=== PATIENT | male | born 1940 | race Caucasian/White ===

== ENCOUNTER 2019-12-25 14:58 | Emergency (ER) | payer MEDICARE ==
--- NOTE | 2019-12-25 15:02 | ERPHSYRPT ---
- History of Present Illness Time Seen by Provider: 12/25/19 15:01 Source: patient Exam Limitations: no limitations Physician History: This is a 79-year-old gentleman who was tripped up walking his dog. He got caught with the dog leash tripped and fell onto his lower back. Most of his pain is on the right side lower back and pelvic brim posteriorly. No other injuries are reported. Timing/Duration: today Method of Injury: fall Quality: stabbing Back Pain Location: lumbar spine, paraspinous muscles (Right paraspinous muscles at the lumbar level) Severity of Pain-Max: moderate Severity of Pain-Current: moderate Associated Symptoms: lower back pain (Right) Previous symptoms: no prior history Allergies/Adverse Reactions: No Known Drug Allergies Allergy (Unverified 06/01/14 18:08) Home Medications: Aspirin [Aspirin EC] 81 mg PO DAILY 06/01/14 [History] Atorvastatin Calcium [Lipitor] 20 mg PO DAILY 06/01/14 [History] Hx Tetanus, Diphtheria Vaccination/Date Given: Yes Hx Influenza Vaccination/Date Given: No Hx Pneumococcal Vaccination/Date Given: No Travel Risk - International Travel Have you traveled outside of the country in past 3 weeks: No Have you or anyone close to you been diagnosed with or: No Do your reside in a community with a known COVID-19 case?: Yes If Yes where:: [facility] - Coronavirus Screening Has patient experienced Coronavirus symptoms: No - Review of Systems Constitutional: No Symptoms Eyes: No Symptoms Ears, Nose, & Throat: No Symptoms Respiratory: No Symptoms Cardiac: No Symptoms Abdominal/Gastrointestinal: No Symptoms Genitourinary Symptoms: No Symptoms Musculoskeletal: Back Pain Skin: No Symptoms Neurological: No Symptoms Psychological: No Symptoms Endocrine: No Symptoms Hematologic/Lymphatic: No Symptoms Immunological/Allergic: No Symptoms All Other Systems: Reviewed and Negative - Past Medical History Pertinent Past Medical History: Yes Neurological History: No Pertinent History ENT History: No Pertinent History Cardiac History: Coronary Artery Disease, High Cholesterol Respiratory History: No Pertinent History Endocrine Medical History: No Pertinent History Musculoskeletal History: No Pertinent History GI Medical History: No Pertinent History History: No Pertinent History Psycho-Social History: No Pertinent History Male Reproductive Disorders: No Pertinent History - Past Surgical History Past Surgical History: Yes Neuro Surgical History: No Pertinent History Cardiac: Cardiac Catheterization, Cardiac Stent Respiratory: No Pertinent History Gastrointestinal: No Pertinent History Genitourinary: No Pertinent History Musculoskeletal: No Pertinent History Male Surgical History: No Pertinent History - Social History Smoking Status: Never smoker Drug Use: none Patient Lives Alone: No - Nursing Vital Signs Nursing Vital Signs: Initial Vital Signs Temperature 97.5 F 12/25/19 15:09 Pulse Rate 62 12/25/19 15:09 Respiratory Rate 20 12/25/19 15:09 Blood Pressure 190/101 12/25/19 15:09 O2 Sat by Pulse Oximetry 97 12/25/19 15:09 Pain Scale Pain Intensity [Right Back] 5 Pain Intensity 5 - Physical Exam General Appearance: mild distress, alert, anxiety Eye Exam: PERRL/EOMI, eyes nml inspection Ears, Nose, Throat Exam: normal ENT inspection, moist mucous membranes Neck Exam: normal inspection, non-tender, supple, full range of motion Respiratory Exam: normal breath sounds, lungs clear, airway intact, No chest tenderness, No respiratory distress Gastrointestinal Exam: soft, normal bowel sounds, No tenderness Rectal Exam: not done Back Exam: normal inspection, normal range of motion, muscle spasm, No CVA tenderness, No vertebral tenderness Extremity Exam: normal inspection, normal range of motion, pelvis stable Neurologic Exam: alert, oriented x 3, cooperative, roving department end finder II-XII nml as tested, normal mood/affect, nml cerebellar function, nml station & gait Skin Exam: normal color, warm, dry Lymphatic Exam: No adenopathy SpO2 Interpretation: normal O2 Delivery: Room Air - Course Nursing assessment & vital signs reviewed: Yes Ordered Tests: Active Orders 24 hr Category Date Time Status LUMBAR LIMITED (2 OR 3 VIEWS) Stat Exams 12/25/19 15:08 Completed PELVIS (1 OR 2 VIEWS) Stat Exams 12/25/19 15:08 Completed Medication Summary Generic Name Dose Route Start Last Admin Trade Name Freq PRN Reason Stop Dose Admin Prednisone 20 mg 12/26/19 15:47 Deltasone 20 Mg PO 12/26/19 15:48 STAT ONE Discontinued Medications Generic Name Dose Route Start Last Admin Trade Name Freq PRN Reason Stop Dose Admin Cyclobenzaprine HCl 10 mg 12/25/19 15:47 Cyclobenzaprine 10 Mg PO 12/25/19 15:48 STAT ONE Oxycodone/Acetaminophen 1 tab 12/25/19 15:47 Oxycodone-Acetaminophen 10-325 PO 12/25/19 15:48 STAT STA - Progress Progress: unchanged Progress Note: 12/25/19 15:55 X-ray of the pelvis reveals no evidence of any acute fracture or dislocation. Lumbar spine x-rays reveal no evidence of any acute fractures or subluxations. Counseled pt/family regarding: diagnosis, need for follow-up, rad results - Departure Departure Disposition: Home Clinical Impression: Fall, Back pain, Contusion Condition: Stable Critical Care Time: No Referrals: MIOSES BLUM MD [Primary Care Provider] - Additional Instructions: Take your medication as prescribed. Follow-up with your primary care physician for persistent symptoms. Prescriptions: Oxycodone HCl/Acetaminophen [Percocet 5-325 mg Tablet] 1 each PO Q8H PRN PRN #9 tablet MDD 3 PRN Reason: Pain Cyclobenzaprine HCl 10 mg [Cyclobenzaprine 10 MG] 10 mg PO TID #10 tablet
[2019-12-25] MEDS ORDERED: Cyclobenzaprine 10 MG PO ONE (15:47)
[2019-12-25] MEDS ORDERED: OXYCODONE-ACETAMINOPHEN 10-325 PO STA (15:47)
--- NOTE | 2019-12-25 15:53 | XRAY ---
Indication: Pain following fall. Comparison: None AP pelvis demonstrates moderate scattered vascular calcifications, partially visualized aortobiiliac stent graft, and pelvic/bilateral inguinal vascular clips. No acute fracture, dislocation, or suspicious bony lesions.
--- NOTE | 2019-12-25 15:53 | XRAY ---
Indication: Pain following fall. Comparison: None 3 views of the lumbar spine demonstrates 5 lumbar vertebral segments in normal alignment with mild/moderate multilevel endplate spurring, mild bilateral L4-S1 degenerative facet hypertrophy, L5-S1 disc space loss, and aortobiiliac stent graft. No acute fracture, subluxation, or suspicious bony lesions. Impression: Nonacute lumbar spine with chronic features.
[2019-12-25] MEDS ORDERED: DELTASONE 20 MG ONE (15:55)
[2019-12-25] MEDS ORDERED: Cyclobenzaprine 10 MG ONE (15:55)
[2019-12-25] MEDS ORDERED: OXYCODONE-ACETAMINOPHEN 10-325 ONE (15:56)
[2019-12-25 16:03] VITALS: BP 139/77; PULSE 60; O2SAT 98
[2019-12-26] MEDS ORDERED: DELTASONE 20 MG PO ONE (15:47)
== END 2019-12-25 16:32 | disposition home or self-care (01) ==
LOC: ED 14:58
DX: S30.0XXA Contusion of lower back and pelvis, initial encounter (principal); M54.5 Low back pain; W01.0XXA Fall on same level from slipping, tripping and stumbling without subsequent striking against object, initial encounter; Y93.K1 Activity, walking an animal; Y92.9 Unspecified place or not applicable; I25.10 Atherosclerotic heart disease of native coronary artery without angina pectoris; E78.00 Pure hypercholesterolemia, unspecified
CPT/HCPCS: 72100; 72170; 99284; A9270-GY

== ENCOUNTER 2020-10-09 11:52 | Day surgery (SDC) | payer MEDICARE ==
[2020-10-09] MEDS ORDERED: Sodium Chloride 0.9(Preservative Free) 10 ML IJ ONE (11:53)
[2020-10-09] MEDS ORDERED: Depo-Medrol 40 MG/ML IM ONE (11:53)
[2020-10-09] MEDS ORDERED: Xylocaine 1% Vial 30 ML PF IJ ONE (11:53)
[2020-10-09] MEDS ORDERED: DIPRIVAN 200 MG/20 ML IV ONE (14:06)
[2020-10-09] MEDS ORDERED: Ketamine HCl 50 MG/ML ONE (14:06)
[2020-10-09] MEDS ORDERED: Lactated Ringers 1,000 ML IV ONE (14:37)
--- NOTE | 2020-10-09 16:22 | XRAY ---
Indication: Lumbar ORI. Intraoperative fluoroscopy provided for 23 seconds. 2 digital spot images submitted for interpretation demonstrates midline posterior needle tip projecting just posterior to the L4-L5 interspace. Small amount of contrast injected for needle tip placement. Correlate with intraoperative findings/report. Incidental incompletely visualized aortobiiliac stent grafts.
--- NOTE | 2020-10-09 16:27 | XRAY ---
23 seconds fluoroscopy time in surgery for lumbar ORI.
== END 2020-10-09 14:43 | disposition home or self-care (01) ==
LOC: SDC-PAIN 11:52
PROVIDERS: ATTEND Psychiatry & Neurology Pain Medicine
DX: M54.16 Radiculopathy, lumbar region (principal); J44.9 Chronic obstructive pulmonary disease, unspecified; I25.10 Atherosclerotic heart disease of native coronary artery without angina pectoris; N39.0 Urinary tract infection, site not specified; Z95.0 Presence of cardiac pacemaker; Z79.899 Other long term (current) drug therapy
CPT/HCPCS: 62323; 72100; 77003; J1030; J2001; J2704; Q9966

== ENCOUNTER 2020-11-13 14:23 | Day surgery (SDC) | payer MEDICARE ==
[2020-11-13] MEDS ORDERED: BUPIVACAINE 0.5% VIAL IJ ONE (14:24)
[2020-11-13] MEDS ORDERED: Xylocaine 1% Vial 30 ML PF IJ ONE (14:24)
[2020-11-13] MEDS ORDERED: Depo-Medrol 40 MG/ML IM ONE (14:24)
--- NOTE | 2020-11-13 16:33 | XRAY ---
Indication: Right SI joint injection. Intraoperative fluoroscopy provided for 14 seconds. 2 digital spot images submitted for interpretation demonstrates posterior needle tip projecting over the inferior right SI joint. Correlate with intraoperative findings/report.
--- NOTE | 2020-11-13 16:35 | XRAY ---
14 seconds fluoroscopy time I n surgery for right SI joint injection.
== END 2020-11-13 15:57 | disposition home or self-care (01) ==
LOC: SDC-PAIN 14:23
PROVIDERS: ATTEND Psychiatry & Neurology Pain Medicine
DX: M46.1 Sacroiliitis, not elsewhere classified (principal); F41.9 Anxiety disorder, unspecified; F32.9 Major depressive disorder, single episode, unspecified; I25.10 Atherosclerotic heart disease of native coronary artery without angina pectoris; J44.9 Chronic obstructive pulmonary disease, unspecified; I25.2 Old myocardial infarction; M19.90 Unspecified osteoarthritis, unspecified site; N39.0 Urinary tract infection, site not specified; Z79.899 Other long term (current) drug therapy
CPT/HCPCS: 27096; 72020; 77002; G0260; J1030; J2001

== ENCOUNTER 2021-01-01 11:56 | Day surgery (SDC) | payer MEDICARE ==
[2021-01-01] MEDS ORDERED: BUPIVACAINE 0.5% VIAL IJ ONE (11:57)
[2021-01-01] MEDS ORDERED: Depo-Medrol 40 MG/ML IM ONE (11:57)
[2021-01-01] MEDS ORDERED: Xylocaine 1% Vial 30 ML PF IJ ONE (11:57)
[2021-01-01] MEDS ORDERED: DIPRIVAN 200 MG/20 ML IV ONE (13:18)
--- NOTE | 2021-01-01 16:12 | XRAY ---
1 minute and 6 seconds fluoroscopy time in surgery for right sacroiliac RFA.
[2021-01-01] MEDS ORDERED: Lactated Ringers 1,000 ML IV ONE (16:40)
--- NOTE | 2021-01-02 22:30 | XRAY ---
Indication: Right sacroiliac RFA. Intraoperative fluoroscopy was provided for 1 minute and 6 seconds. 2 digital spot images submitted for interpretation demonstrate 4 posterior needle tips projected just medial to the upper and mid portions of the right sacroiliac joint. Correlate with intraoperative findings/report.
== END 2021-01-01 14:02 | disposition home or self-care (01) ==
LOC: SDC-PAIN 11:56
PROVIDERS: ATTEND Psychiatry & Neurology Pain Medicine
DX: M47.816 Spondylosis without myelopathy or radiculopathy, lumbar region (principal); J44.9 Chronic obstructive pulmonary disease, unspecified; I25.10 Atherosclerotic heart disease of native coronary artery without angina pectoris; Z79.899 Other long term (current) drug therapy; F41.8 Other specified anxiety disorders
CPT/HCPCS: 64625; 72202; 77002; 99100; J1030; J2001; J2704

== ENCOUNTER 2021-03-26 12:07 | Day surgery (SDC) | payer MEDICARE ==
[2021-03-26] MEDS ORDERED: Depo-Medrol 40 MG/ML IM ONE (12:08)
[2021-03-26] MEDS ORDERED: BUPIVACAINE 0.5% VIAL IJ ONE (12:08)
[2021-03-26] MEDS ORDERED: DIPRIVAN 200 MG/20 ML IV ONE (13:54)
--- NOTE | 2021-03-26 15:22 | XRAY ---
Indication: Right SI joint injection. Intraoperative fluoroscopy provided for 15 seconds. Single lateral digital spot image submitted for interpretation demonstrates posterior needle tip projecting mid sacrum level. Correlate with intraoperative findings/report.
[2021-03-26] MEDS ORDERED: Lactated Ringers 1,000 ML IV ONE (15:54)
--- NOTE | 2021-03-26 16:45 | XRAY ---
15 seconds fluoroscopy time in surgery for injection of the right SI joint.
== END 2021-03-26 14:17 | disposition home or self-care (01) ==
LOC: SDC-PAIN 12:07
PROVIDERS: ATTEND Psychiatry & Neurology Pain Medicine
DX: M46.1 Sacroiliitis, not elsewhere classified (principal); Z79.899 Other long term (current) drug therapy
CPT/HCPCS: 27096; 72020; 77002; G0260; J1030; J2704

== ENCOUNTER 2021-04-30 12:19 | Day surgery (SDC) | payer MEDICARE ==
[2021-04-30] MEDS ORDERED: BUPIVACAINE 0.5% VIAL IJ ONE (12:20)
[2021-04-30] MEDS ORDERED: Depo-Medrol 40 MG/ML IM ONE (12:20)
[2021-04-30] MEDS ORDERED: Ketamine HCl 50 MG/ML ONE (13:05)
[2021-04-30] MEDS ORDERED: DIPRIVAN 200 MG/20 ML IV ONE (13:05)
[2021-04-30] MEDS ORDERED: Lactated Ringers 1,000 ML IV ONE (14:06)
--- NOTE | 2021-04-30 15:27 | XRAY ---
Indication: Bilateral L4-S1 MBB. Intraoperative fluoroscopy provided for 18 seconds. Single digital spot image submitted for interpretation demonstrates posterior needle tips projecting over the expected left and right L4-S1 nerve roots. Correlate with intraoperative findings/report. Incidental partially visualized aortobiiliac stent grafts.
--- NOTE | 2021-04-30 17:14 | XRAY ---
18 seconds fluoroscopy time in surgery for bilateral L4-S1 MBB.
== END 2021-04-30 14:20 | disposition home or self-care (01) ==
LOC: SDC-PAIN 12:19
PROVIDERS: ATTEND Psychiatry & Neurology Pain Medicine
DX: M47.816 Spondylosis without myelopathy or radiculopathy, lumbar region (principal); Z79.899 Other long term (current) drug therapy
CPT/HCPCS: 64493; 64494; 72020; 77002; J1030; J2704

== ENCOUNTER 2022-05-20 12:14 | Day surgery (SDC) | payer MEDICARE ==
[2022-05-20] MEDS ORDERED: Depo-Medrol 40 MG/ML IM ONE (12:15)
[2022-05-20] MEDS ORDERED: BUPIVACAINE 0.5% VIAL IJ ONE (12:15)
[2022-05-20] MEDS ORDERED: DIPRIVAN 200 MG/20 ML IV ONE (14:04)
[2022-05-20] MEDS ORDERED: Lactated Ringers 1,000 ML IV ONE (14:33)
--- NOTE | 2022-05-20 18:11 | XRAY ---
Indication: Bilateral L4-S1 MBB. Intraoperative fluoroscopy provided for 8 seconds. Single digital spot image submitted for interpretation demonstrates posterior needle tips projecting over the expected left and right L4-S1 nerve roots. Correlate with intraoperative findings/report. Incidental partially visualized bilateral aortoiliac stent grafts.
--- NOTE | 2022-05-20 18:34 | XRAY ---
8 seconds fluoroscopy time in surgery for bilateral L4-S1 MBB.
== END 2022-05-20 14:27 | disposition home or self-care (01) ==
LOC: SDC-PAIN 12:14
PROVIDERS: ATTEND Psychiatry & Neurology Pain Medicine
DX: M47.816 Spondylosis without myelopathy or radiculopathy, lumbar region (principal)
CPT/HCPCS: 64493; 64494; 72020; 77002; J1030; J2704

== ENCOUNTER 2022-06-17 07:55 | Day surgery (SDC) | payer MEDICARE | END 2022-06-17 08:30 | disposition home or self-care (01) | LOC: SDC-PAIN 07:55 | PROVIDERS: ATTEND Psychiatry & Neurology Pain Medicine | DX: Z53.8 Procedure and treatment not carried out for other reasons (principal); N39.0 Urinary tract infection, site not specified ==

== ENCOUNTER 2022-07-01 07:52 | Day surgery (SDC) | payer MEDICARE ==
[2022-07-01] MEDS ORDERED: BUPIVACAINE 0.5% VIAL IJ ONE (07:53)
[2022-07-01] MEDS ORDERED: Depo-Medrol 40 MG/ML IM ONE (07:53)
[2022-07-01] MEDS ORDERED: Xylocaine 1% Vial 30 ML PF IJ ONE (07:53)
[2022-07-01] MEDS ORDERED: DIPRIVAN 200 MG/20 ML IV ONE (09:43)
--- NOTE | 2022-07-01 11:44 | XRAY ---
Indication: Right L4-S1 RFA. Intraoperative fluoroscopy provided for 23 seconds. 4 digital spot image submitted for interpretation demonstrates posterior needle tips projecting over the expected right L4-S1 nerve roots. Correlate with intraoperative findings/report. Incidental incompletely visualized aortobiiliac stent grafts.
--- NOTE | 2022-07-01 12:11 | XRAY ---
23 seconds of fluoroscopy was used in surgery for a right L4-S1 RFA.
[2022-07-01] MEDS ORDERED: Lactated Ringers 1,000 ML IV ONE (12:59)
== END 2022-07-01 10:15 | disposition home or self-care (01) ==
LOC: SDC-PAIN 07:52
PROVIDERS: ATTEND Psychiatry & Neurology Pain Medicine
DX: M47.816 Spondylosis without myelopathy or radiculopathy, lumbar region (principal); Z79.899 Other long term (current) drug therapy
CPT/HCPCS: 64635; 64636; 72100; 77002; 99100; J1030; J2001; J2704